=== PATIENT | female | born 1995 | race African-American/Black ===

== ENCOUNTER 2017-12-17 04:43 | Emergency (ER) | payer BC, OTHER ==
[2017-12-17] MEDS ORDERED: SODIUM CHLORIDE 1,000 ML IV STA (05:04)
--- NOTE | 2017-12-17 05:04 | PDOC ---
History of Present Illness - General Chief Complaint: Pain Stated Complaint: ABD PAIN Time Seen by Provider: 12/17/17 05:04 History Source: Patient - History of Present Illness Initial Comments: 12/17/17 05:12 22 year old female c/o suprapubic pain/ LLQ and nausea since 4am. denies urinary symptoms. unsure last BM , woke up this morning try to have a bm unable to pass BM. denies fever/ chills. Timing/Duration: momentarily Past History - Past Medical History Allergies/Adverse Reactions: Allergies Allergy/AdvReac Type Severity Reaction Status Date / Time No Known Allergies Allergy Verified 12/17/17 05:01 Home Medications: Ambulatory Orders Magnesium Citrate [Citroma -] 150 ml PO BID #1 bottle 12/17/17 Polyethylene Glycol 3350 [Miralax (For Daily Use) -] 17 gm PO DAILY #1 bottle Anemia: No Asthma: No Cancer: No Cardiac Disorders: No CVA: No COPD: No Dementia: No Diabetes: No Dialysis: No GI Disorders: No Disorders: No HTN: No Hypercholesterolemia: No Kidney Stones: No Liver Disease: No Seizures: No Thyroid Disease: No - Surgical History Abdominal Surgery: No Appendectomy: No Cardiac Surgery: No Cholecystectomy: No Lung Surgery: No Neurologic Surgery: No - Family Disease History Family Disease History: Diabetes: Grandparents (mat gm), Heart Disease: Grandparents - Immunization History Td Vaccination: Yes TDAP Vaccination: No Immunization Up to Date: Yes - Suicide/Smoking/Psychosocial Hx Smoking Status: No Smoking History: Current every day smoker Have you smoked in the past 12 months: Yes Number of Cigarettes Smoked Daily: 0 Information on smoking cessation initiated: No Hx Alcohol Use: No Drug/Substance Use Hx: No Substance Use Type: None Hx Substance Use Treatment: No *Physical Exam - Vital Signs Last Vital Signs Temp Pulse Resp BP Pulse Ox 98 F 76 18 134/85 99 12/17/17 04:53 12/17/17 04:53 12/17/17 04:53 12/17/17 04:53 12/17/17 04:53 - Physical Exam General Appearance: Yes: Appropriately Dressed, Mild Distress Gastrointestinal/Abdominal: positive: Soft, Decreased BS. negative: Tender Musculoskeletal: positive: Normal Inspection Extremity: positive: Normal Capillary Refill, Normal Inspection, Normal Range of Motion Integumentary: positive: Normal Color, Dry, Warm Neurologic: positive: Fully Oriented, Alert ED Treatment Course - LABORATORY CBC & Chemistry Diagram: 12/17/17 05:20 12/17/17 05:20 Medical Decision Making - Medical Decision Making 12/17/17 06:14 A: abdominal pain P: cbc cmp ua IVF zofran tylenol patient reports pain relief. likely abdominal cramping from constipation. will give miralax and magnesium citrate. strict return precautions reviewed patient verbalized understanding *DC/Admit/Observation/Transfer Diagnosis at time of Disposition: Abdominal pain Qualifiers: Abdominal location: unspecified location Qualified Code(s): R10.9 - Unspecified abdominal pain Constipation Qualifiers: Constipation type: unspecified constipation type Qualified Code(s): K59.00 - Constipation, unspecified - Discharge Dispostion Disposition: HOME Condition at time of disposition: Fair - Prescriptions Prescriptions: Magnesium Citrate [Citroma -] 150 ml PO BID #1 bottle Polyethylene Glycol 3350 [Miralax (For Daily Use) -] 17 gm PO DAILY #1 bottle - Referrals - Patient Instructions Printed Discharge Instructions: Constipation, Increased Dietary Fiber May Improve Constipation Conditions With Pelvic Mohamud Additional Instructions: drink plenty of fluids. take one bottle of magnesium citrate x 1 take miralax once daiily * Please call your personal physician to report your Emergency Department visit and to report your progress, if any. * If there is no improvement in symptoms in 2 days call your physician. * Return to the Emergency Department for any worsening symptoms. - Post Discharge Activity Forms/Work/School Notes: Back to Work
[2017-12-17 05:05] VITALS: TEMP 98; BMI 20.2
[2017-12-17] MEDS ORDERED: ONDANSETRON 4 MG/2 ML VIAL IVPUSH ONE (05:15)
[2017-12-17] MEDS ORDERED: ACETAMINOPHEN 1000 MG/100 ML VIAL (NON FORMULARY) IVPB ONE (05:25)
[2017-12-17] MEDS ORDERED: ONDANSETRON 4 MG/2 ML VIAL ONE (05:26)
[2017-12-17] MEDS ORDERED: ACETAMINOPHEN INJECTION 100 ML IVPB ONE (05:32)
[2017-12-17 05:34] LABS: BASO % 1.3 % (0-2.0); EOS % 2.3 % (0-4.5); HEMATOCRIT 34.1 % (32.4-45.2); HEMOGLOBIN 10.9 GM/dL (10.7-15.3); LYMPH % 45.1 % (8-40); MCH 27.4 pg (25.7-33.7); MEAN CELL VOLUME 85.5 fl (80-96); MONO % 10.2 % (3.8-10.2); NEUT % 41.1 % (42.8-82.8); PLATELET COUNT 306 K/MM3 (134-434); RBC 3.99 M/mm3 (3.60-5.2); RDW 17.7 % (11.6-15.6); WHITE BLOOD COUNT 3.5 K/mm3 (4.0-10.0)
[2017-12-17 05:35] LABS: URINE APPEARANCE CLOUDY; URINE BILIRUBIN NEGATIVE (<2.0 mg/dL); URINE COLOR YELLOW; URINE GLUCOSE (UA) NEGATIVE (NEGATIVE); URINE KETONE TRACE (NEGATIVE); URINE LEUK ESTERASE NEGATIVE (NEGATIVE); URINE NITRITE NEGATIVE (NEGATIVE); URINE PROTEIN NEGATIVE (NEGATIVE)
[2017-12-17 06:00] LABS: ALBUMIN 4.3 g/dl (3.4-5.0); ALK PHOS 82 U/L (45-117); ANION GAP 8 MMOL/L (8-16); BILIRUBIN,TOTAL 0.3 mg/dL (0.2-1); BLOOD UREA NITROGEN 10 mg/dL (7-18); CALCIUM 9.3 mg/dL (8.5-10.1); CHLORIDE 110 mmol/L (98-107); CO2 25 mmol/L (21-32); CREATININE 0.7 mg/dL (0.55-1.3); GLUCOSE,RANDOM 80 mg/dL (74-106); LIPASE 133 U/L (73-393); POTASSIUM 3.7 mmol/L (3.5-5.1); SGOT/AST 16 U/L (15-37); SGPT/ALT 15 U/L (13-61); SODIUM 143 mmol/L (136-145); TOT PROT 8.3 g/dl (6.4-8.2)
[2017-12-17 06:30] VITALS: BP 128/74; PULSE 82
== END 2017-12-17 06:31 | disposition home or self-care (01) ==
LOC: JER 04:43
PROC: 3E033NZ Introduction of Analgesics, Hypnotics, Sedatives into Peripheral Vein, Percutaneous Approach (ICD-10-PCS; principal; 2017-12-17)
PROC: 3E033GC Introduction of Other Therapeutic Substance into Peripheral Vein, Percutaneous Approach (ICD-10-PCS; 2017-12-17)
PROC: 3E0337Z Introduction of Electrolytic and Water Balance Substance into Peripheral Vein, Percutaneous Approach (ICD-10-PCS; 2017-12-17)
DX: K59.00 Constipation, unspecified (principal); R10.9 Unspecified abdominal pain
CPT/HCPCS: 36415; 80053; 81003; 83690; 84703; 85025; 99282-25; J0131; J7030

== ENCOUNTER 2018-08-07 11:17 | Emergency (ER) | payer OTHER ==
[2018-08-07 11:28] VITALS: BP 118/78; PULSE 93; TEMP 98.8; BMI 22.9
[2018-08-07] MEDS ORDERED: ACETAMINOPHEN 500 MG TABLET (FP) PO ONE (12:05)
--- NOTE | 2018-08-07 12:39 | PDOC ---
History of Present Illness - General Chief Complaint: Vaginal Bleeding Stated Complaint: VAGINAL BLEEDING Time Seen by Provider: 08/07/18 11:43 History Source: Patient Exam Limitations: No Limitations - History of Present Illness Travel History: No Initial Comments: 08/07/18 12:13 23-year-old female currently 13 weeks presents the ED with complaints of lower abdominal cramping associated with spotting this morning after urination. Patient currently denies vaginal discharge or bleeding. Patient denies back pain, urinary complaints, fever or nausea. Patient is followed by Dr. Rosales and had an ultrasound done last week which showed a normal IUP. Timing/Duration: reports: changing over time Quality: reports: mild, cramping Abdominal Pain Onset Location: reports: suprapubic Pain Radiation: reports: no radiation Activities at Onset: reports: none Aggravating Factors: improves with: None Alleviating Factors: improves with: None Past History - Travel Traveled outside of the country in the last 30 days: No Close contact w/someone who was outside of country & ill: No - Past Medical History Allergies/Adverse Reactions: Allergies Allergy/AdvReac Type Severity Reaction Status Date / Time No Known Allergies Allergy Verified 12/17/17 05:01 Home Medications: Ambulatory Orders NK [No Known Home Medication] 08/07/18 Anemia: No Asthma: No Cancer: No Cardiac Disorders: No CVA: No COPD: No Dementia: No Diabetes: No Dialysis: No GI Disorders: No Disorders: No HTN: No Hypercholesterolemia: No Kidney Stones: No Liver Disease: No Seizures: No Thyroid Disease: No - Surgical History Abdominal Surgery: No Appendectomy: No Cardiac Surgery: No Cholecystectomy: No Lung Surgery: No Neurologic Surgery: No - Family Disease History Family Disease History: Diabetes: Grandparents (mat gm), Heart Disease: Grandparents - Immunization History Td Vaccination: Yes TDAP Vaccination: No Immunization Up to Date: Yes - Suicide/Smoking/Psychosocial Hx Smoking Status: No Smoking History: Never smoked Have you smoked in the past 12 months: Yes Number of Cigarettes Smoked Daily: 0 Information on smoking cessation initiated: No Hx Alcohol Use: No Drug/Substance Use Hx: No Substance Use Type: None Hx Substance Use Treatment: No Patient Lives Alone: No Lives with/in: parents Review of Systems - Review of Systems Able to Perform ROS?: Yes Constitutional: No: Symptoms Reported Respiratory: No: Symptoms reported Cardiac (ROS): No: Symptoms Reported ABD/GI: Yes: Abdominal cramping : Yes: Discharge Musculoskeletal: No: Symptoms Reported Integumentary: No: Symptoms Reported Neurological: No: Symptoms reported *Physical Exam - Vital Signs Last Vital Signs Temp Pulse Resp BP Pulse Ox 98.8 F 93 H 16 118/78 100 08/07/18 11:23 08/07/18 11:23 08/07/18 11:23 08/07/18 11:23 08/07/18 11:23 - Physical Exam General Appearance: Yes: Nourished, Appropriately Dressed. No: Apparent Distress HEENT: positive: EOMI. negative: Pale Conjunctivae Neck: positive: Supple Respiratory/Chest: positive: Lungs Clear, Normal Breath Sounds. negative: Respiratory Distress, Accessory Muscle Use Cardiovascular: positive: Regular Rhythm, Regular Rate. negative: Murmur Female Pelvic Exam: positive: normal external exam, cervical os closed. negative: normal adnexa, CMT, discharge, vaginal bleeding Gastrointestinal/Abdominal: positive: Soft. negative: Tenderness Musculoskeletal: negative: CVA Tenderness Extremity: positive: Normal Inspection Integumentary: positive: Normal Color, Warm, Moist Neurologic: positive: Motor Strength 5/5 (ambulatory) ED Treatment Course - LABORATORY CBC & Chemistry Diagram: 08/07/18 12:45 08/07/18 12:45 - RADIOLOGY Radiology Studies Ordered: Category Date Time Status <14WKS US [US] Stat Ultrasound 08/07/18 12:06 Ordered Medical Decision Making - Medical Decision Making 08/07/18 12:40 CC: vag spotting thia am now w/ cramping. 13 wks Exam: no abd tenderness. no vag bleeding/DC Plan: labs, urine, tylenol, and U/s 08/07/18 13:36 Laboratory Tests 08/07/18 08/07/18 08/07/18 12:25 12:45 12:45 WBC 5.0 Hgb 10.6 L Hct 33.1 MPV 7.2 L Absolute Neuts (auto) 3.5 Sodium 135 L Carbon Dioxide 20 L Anion Gap 8 BUN 11 Creatinine 0.5 L Random Glucose 78 Calcium 9.3 Total Bilirubin < 0.1 L AST 15 ALT 13 Alkaline Phosphatase 53 Total Protein 7.4 Albumin 3.4 Ur Leukocyte Esterase 2+ H Urine WBC (Auto) 11 Ultrasound shows a single live and she her with estimated sonographic gestational 13 weeks and 3 days. heart rate at 155. Patient will be discharged home with Keflex *DC/Admit/Observation/Transfer Diagnosis at time of Disposition: UTI (urinary tract infection), Abdominal pain during intrauterine - Discharge Dispostion Disposition: HOME Condition at time of disposition: Improved - Referrals - Patient Instructions Printed Discharge Instructions: DI for Urinary Tract Infection (UTI) Additional Instructions: Please take antibiotics as prescribed. Drink at least 2 L of water on a daily basis. Please clean from front to back and wear cotton underwear. - Post Discharge Activity
[2018-08-07 12:51] LABS: EPI CELLS 33.2 /HPF (0-5/HPF); PH,URINE 5.5 (5.0-8.0); URINE APPEARANCE CLOUDY; URINE BACTERIA 558.1 /hpf (NEGATIVE); URINE BILIRUBIN NEGATIVE (NEGATIVE); URINE CASTS 15 /lpf (0-8); URINE COLOR YELLOW; URINE GLUCOSE (UA) NEGATIVE (NEGATIVE); URINE KETONE NEGATIVE (NEGATIVE); URINE LEUK ESTERASE 2+ (NEGATIVE); URINE NITRITE NEGATIVE (NEGATIVE); URINE PROTEIN NEGATIVE (NEGATIVE); URINE RBC 1 /hpf (0-4); URINE UROBILINOGEN 0.2 mg/dL (0.2-1.0); URINE WBC 11 /hpf (0-5)
[2018-08-07] MEDS ORDERED: ACETAMINOPHEN 325 MG TABLET (FP) ONE (12:56)
[2018-08-07 12:59] LABS: BASO % 0.4 % (0-2.0); EOS % 0.9 % (0-4.5); HEMATOCRIT 33.1 % (32.4-45.2); HEMOGLOBIN 10.6 GM/dL (10.7-15.3); MCH 27.8 pg (25.7-33.7); MEAN CELL VOLUME 87.1 fl (80-96); MEAN PLT VOLUME 7.2 fl (7.5-11.1); MONO % 8.4 % (3.8-10.2); NEUT % 70.3 % (42.8-82.8); PLATELET COUNT 293 K/MM3 (134-434); RDW 16.5 % (11.6-15.6)
[2018-08-07 13:27] LABS: ALBUMIN 3.4 g/dl (3.4-5.0); ALK PHOS 53 U/L (45-117); ANION GAP 8 MMOL/L (8-16); BILIRUBIN,TOTAL < 0.1 mg/dL (0.2-1); BLOOD UREA NITROGEN 11 mg/dL (7-18); CALCIUM 9.3 mg/dL (8.5-10.1); CHLORIDE 107 mmol/L (98-107); CO2 20 mmol/L (21-32); CREATININE 0.5 mg/dL (0.55-1.3); GLUCOSE,RANDOM 78 mg/dL (74-106); POTASSIUM 4.1 mmol/L (3.5-5.1); SGOT/AST 15 U/L (15-37); SGPT/ALT 13 U/L (13-61); SODIUM 135 mmol/L (136-145); TOT PROT 7.4 g/dl (6.4-8.2)
== END 2018-08-07 13:45 | disposition home or self-care (01) ==
LOC: JER 11:17
DX: O23.31 Infections of other parts of urinary tract in pregnancy, first trimester (principal); Z3A.13 13 weeks gestation of pregnancy
CPT/HCPCS: 36415; 76801-TC; 80053; 81003; 85025; 86850; 86900; 86901; 87086; 99282-25

== ENCOUNTER 2019-02-07 19:50 | Inpatient (IN) | payer OTHER ==
[2019-02-07] MEDS ORDERED: DEXTROSE 5%-LACTATED RINGERS 500 ML IV ONE ×2 (21:15)
[2019-02-07] MEDS ORDERED: AMPICILLIN - 2 GM in SODIUM CHLORIDE 100 ML IVPB ONE (22:34)
[2019-02-07] MEDS ORDERED: BUTORPHANOL TARTRATE 1 MG/ML VIAL IVPUSH ONE (22:36)
[2019-02-07] MEDS ORDERED: PROMETHAZINE HCL 25 MG/1 ML VIAL IVPUSH ONE (22:36)
--- NOTE | 2019-02-07 22:45 | HP ---
Past Medical History - Primary Care Physician PCP:: Erickson Rosales - Admission Chief Complaint: 39 weeks , labor History of Present Illness: 23 yo f 39 weeks, in labor ,cx 2 cm 70 vx -3 ,mi, fhr cat 1, , regular contraction q 2 min, no rom, no bleeding, no fever , GBS positive History Source: Patient Limitations to Obtaining History: No Limitations - Past Medical History ...: 1 ...Para: 0 ...Term: 0 ...: 0 ...Spon : 0 ...Induced : 0 ...LMP: 05/10/18 ... Weeks Gestation by Dates: 39.0 ...EDC by Dates: 02/14/19 ...EDC by Sono: 02/11/19 - Past Surgical History Hx Myomectomy: No Hx Transabdominal Cerclage: No - Smoking History Smoking history: Never smoked Have you smoked in the past 12 months: Yes Aproximately how many cigarettes per day: 0 - Alcohol/Substance Use Hx Alcohol Use: No - Social History Usual Living Arrangement: Yes: With Significant Other History of Recent Travel: No Home Medications - Allergies Allergies/Adverse Reactions: Allergies Allergy/AdvReac Type Severity Reaction Status Date / Time No Known Allergies Allergy Verified 02/07/19 21:01 - Home Medications Home Medications: Ambulatory Orders Ferrous Sulfate [Feosol] 325 mg PO DAILY 02/07/19 Vitamins (Sjr) - 1 tab PO DAILY 02/07/19 Review of Systems - Review of Systems Constitutional: reports: No Symptoms Eyes: reports: No Symptoms HENT: reports: No Symptoms Neck: reports: No Symptoms Cardiovascular: reports: No Symptoms Respiratory: reports: No Symptoms Gastrointestinal: reports: No Symptoms Genitourinary: reports: No Symptoms Breasts: reports: No Symptoms Reported Musculoskeletal: reports: No Symptoms Integumentary: reports: No Symptoms Neurological: reports: No Symptoms Endocrine: reports: No Symptoms Hematology/Lymphatic: reports: No Symptoms Psychiatric: reports: No Symptoms Physical Exam - Maternity Vital Signs: Vital Signs Temperature 98.3 F 02/07/19 20:13 Pulse Rate 97 H 02/07/19 20:13 Respiratory Rate 20 02/07/19 20:13 Blood Pressure 115/80 02/07/19 20:13 O2 Sat by Pulse Oximetry (%) Constitutional: Yes: Well Nourished, No Distress, Calm Eyes: Yes: WNL, Conjunctiva Clear, EOM Intact HENT: Yes: WNL, Atraumatic, Normocephalic Neck: Yes: WNL, Supple, Trachea Midline Cardiovascular: Yes: WNL, Regular Rate and Rhythm Breast(s): Yes: WNL - Abdominal Exam/OB Fundal Height: 40 Number of Fetuses: Single Presentation: Vertex Contractions: Yes Regularity: Regular Intensity: Mod/Strong Monitor Mode: External Heart Rate Location: [facility] Category: I Accelerations: Non-Uniform Decelerations: None - Vaginal Exam/OB Vaginal Bleediing: No Speculum Exam: No Dilatation (cm): 2 cm Effacement (%): 70 Amniotic Membrane Status: Intact Presentation: Vertex/Position Station: -3 - Physical Exam Musculoskeletal: Yes: WNL Extremities: Yes: WNL Edema: LLE: Trace, RLE: Trace Deep Tendon Reflex Grade: Normal +2 Psychiatric: Yes: WNL Problem List - Problems (1) with 39 completed weeks gestation Code(s): Z3A.39 - 39 WEEKS GESTATION OF (2) Labor established Code(s): ADK2578 - Assessment/Plan admit FHM pain management GBS positve , will tx
[2019-02-07 22:48] LABS: BASO % 0.2 % (0-2.0); EOS % 0.3 % (0-4.5); HEMATOCRIT 30.6 % (32.4-45.2); HEMOGLOBIN 9.9 GM/dL (10.7-15.3); LYMPH % 16.1 % (8-40); MCH 28.4 pg (25.7-33.7); MCHC 32.4 g/dl (32.0-36.0); MEAN CELL VOLUME 87.8 fl (80-96); MEAN PLT VOLUME 8.9 fl (7.5-11.1); NEUT % 73.4 % (42.8-82.8); PLATELET COUNT 214 K/MM3 (134-434); RBC 3.48 M/mm3 (3.60-5.2); RDW 15.1 % (11.6-15.6); WHITE BLOOD COUNT 7.1 K/mm3 (4.0-10.0)
[2019-02-07] MEDS ORDERED: AMPICILLIN SODIUM 2 GM VIAL ONE (22:50)
[2019-02-07 22:58] LABS: INR 0.97 (0.83-1.09); PROTHROMBIN TIME (PATIENT) 11.4 SEC (9.7-13.0)
[2019-02-07 23:01] LABS: ACTIVATED PTT 24.1 SECONDS (25.2-36.5)
[2019-02-07 23:10] LABS: BLOOD UREA NITROGEN 9.4 mg/dL (7-18); CALCIUM 8.8 mg/dL (8.5-10.1); CREATININE 0.6 mg/dL (0.55-1.3)
[2019-02-07] MEDS ORDERED: TUBERCULIN PPD 5 TU/0.1ML SYRINGE (IN PATIENT USE ONLY) ID ONE (23:15)
[2019-02-07] MEDS ORDERED: DEXTROSE 5%-LACTATED RINGERS 1,000 ML IV SCH (23:15)
[2019-02-07] MEDS ORDERED: BUTORPHANOL TARTRATE 1 MG/ML VIAL ONE ×2 (23:21)
[2019-02-07] MEDS ORDERED: PROMETHAZINE HCL 25 MG/1 ML VIAL ONE (23:21)
[2019-02-08 00:31] VITALS: BMI 29.1
[2019-02-08] MEDS ORDERED: FENTANYL/BUPIVACAINE/NS/PF - PCEA - 50 ML DISP.SYRIN EP ONE ×5 (02:19→15:06)
[2019-02-08] MEDS ORDERED: AMPICILLIN SODIUM 1 GM VIAL ONE ×6 (02:20→18:43)
[2019-02-08] MEDS ORDERED: ELECTROLYTE-148 SOLN 1,000 ML IV SCH (02:30)
[2019-02-08] MEDS: AMPICILLIN - 1 GM in SODIUM CHLORIDE 100 ML IVPB SCH ×5 (02:30→18:45)
[2019-02-08] MEDS ORDERED: NALOXONE HCL 0.4 MG/ML VIAL IVPUSH PRN (03:31)
[2019-02-08] MEDS ORDERED: FENTANYL/BUPIVACAINE/NS/PF - PCEA - 50 ML DISP.SYRIN EP SCH (03:45)
[2019-02-08] MEDS: FENTANYL/BUPIVACAINE/NS/PF - PCEA - 50 ML DISP.SYRIN EP SCH (07:48)
--- NOTE | 2019-02-08 08:32 | PN ---
Progress Note (short form) - Note Progress Note: cx 8 cm 100 vx -2 arom, mec .A.F . FHR cat 1, regular contraction. Problem List - Problems (1) with 39 completed weeks gestation Code(s): Z3A.39 - 39 WEEKS GESTATION OF (2) Labor established Code(s): [id number] -
--- NOTE | 2019-02-08 10:46 | PN ---
Ante-Partal Exam - Subjective Subjective: No complaints. Epidural is in place. Vital Signs: Vital Signs Temperature 98.4 F 02/08/19 10:00 Pulse Rate 90 02/08/19 10:30 Respiratory Rate 17 02/08/19 10:30 Blood Pressure 128/87 02/08/19 10:30 O2 Sat by Pulse Oximetry (%) 100 02/08/19 10:30 Bleeding: No Headache: No Visual changes: No Right upper quadrant pain: No Pain (scale 1-10): 0 - Contractions Contractions: Yes Regularity: Irregular Intensity: Moderate Monitor Mode: External - Exam during Labor Heart Rate: 140 Variability: Moderate Heart Rate Location: Midline Category: I Monitor Accelerations: Present Monitor Decelerations: None Exam: Vaginal Dilatation (cm): 9 Effacement (%): 90 Amniotic Membrane Status: Leaking Amniotic Fluid: Meconium Stained Meconium Staining: Light Presentation: Vertex Station: 0 Remarks: Adequate pelvimetry - Intrapartum Hemorrhage Risk Medium Risk Factors: None High Risk Factors: None Risk Score: 0 Risk Level: Low Risk - Assessment/Plan Assessment/Plan: 23yo P0 with at EGA 39wks in spont labor. Labor is in active phase. Fetus with Category I tracing Continue monitoring.
[2019-02-08] MEDS ORDERED: OXYTOCIN 30 UNITS in 0.9% NS 30 UNIT/500 ML INFUS.BAG IVPB ONE (11:58)
--- NOTE | 2019-02-08 12:12 | PN ---
Ante-Partal Exam - Subjective Subjective: Pt w/o complaints Vital Signs: Vital Signs Temperature 98.8 F 02/08/19 11:00 Pulse Rate 91 H 02/08/19 11:15 Respiratory Rate 17 02/08/19 11:15 Blood Pressure 125/87 02/08/19 11:15 O2 Sat by Pulse Oximetry (%) 100 02/08/19 11:15 Bleeding: No Headache: No Visual changes: No Right upper quadrant pain: No Pain (scale 1-10): 0 - Contractions Contractions: Yes Regularity: Irregular (q2-6 min) Intensity: Mild/Mod Monitor Mode: External - Exam during Labor Heart Rate: 145 Variability: Moderate Heart Rate Location: Midline Category: I Monitor Accelerations: Present Monitor Decelerations: Variable (rare varaible decels to 120) Exam: Vaginal Dilatation (cm): 9 Effacement (%): 90 Amniotic Membrane Status: Leaking Amniotic Fluid: Meconium Stained Meconium Staining: Light Presentation: Vertex Station: 0 Remarks: No cervical change, gynecoid pelvimetry. No caput, no cervical edema. - Intrapartum Hemorrhage Risk Medium Risk Factors: None High Risk Factors: None Risk Score: 0 Risk Level: Low Risk - Assessment/Plan Assessment/Plan: 23yo P0 with arrest of dilation and inadequate contractions. Fetus with Category I tracing and requires no intervention. Labor with arrest of dilation. Plan to augment contractions with pitocin. Risks and benefits d/w pt.
[2019-02-08] MEDS ORDERED: OXYTOCIN 30 UNITS in 0.9% NS 30 UNIT/500 ML INFUS.BAG IVPB SCH (12:30)
[2019-02-08] MEDS ORDERED: OXYTOCIN 20 UNITS in 0.9% NS 20 UNIT/1,000 ML INFUS.BAG IV ONE ×2 (16:05→20:22)
[2019-02-08] MEDS ORDERED: LIDOCAINE HCL 1% PRESERVATIVE FREE - 30ML VIAL ONE (16:05)
[2019-02-08] MEDS ORDERED: LIDO 2%/EPI 1:200000 PRESRVFRE (20 ML SDVIAL) ONE (19:07)
--- NOTE | 2019-02-08 19:14 | PN ---
Ante-Partal Exam - Subjective Subjective: Pt has been fully dilated since 3;45pm and pushing since 4pm. Fetus with arrest of descent at +1 station. Vital Signs: Vital Signs Temperature 100.0 F H 02/08/19 15:53 Pulse Rate 115 H 02/08/19 16:15 Respiratory Rate 18 02/08/19 16:15 Blood Pressure 146/102 H 02/08/19 16:15 O2 Sat by Pulse Oximetry (%) 100 02/08/19 16:15 Bleeding: No Headache: No Visual changes: No Right upper quadrant pain: No Pain (scale 1-10): 10 (epidural was turned off) - Contractions Contractions: Yes (q3min) Regularity: Regular Intensity: Mod/Strong Monitor Mode: External - Exam during Labor Heart Rate: 145 Variability: Moderate Heart Rate Location: Midline Category: II Monitor Accelerations: Present Monitor Decelerations: Variable (rare, down to 120 bpm) Exam: Vaginal Dilatation (cm): 10 Effacement (%): 100 Amniotic Membrane Status: Leaking Meconium Staining: Moderate Presentation: Vertex Station: +1 Remarks: Severe vulvar edema, (+) caput and molding, no descent with pushing effort. - Intrapartum Hemorrhage Risk Medium Risk Factors: Prolonged Second Stage High Risk Factors: None Risk Score: 1 Risk Level: Medium Risk - Assessment/Plan Assessment/Plan: 23yo P0 with arrest of descent. Fetus with Category II tracing. Pt was pushing x 3 hrs w/o changes. plan to proceed with C/S. Risks and benefits were discussed.
[2019-02-08] MEDS ORDERED: SUCCINYLCHOLINE CHLORIDE 200 MG/10 ML SYRINGE ONE (19:39)
[2019-02-08] MEDS ORDERED: ePHEDrine SULFATE 50 MG/1 ML AMPULE ONE (19:39)
[2019-02-08] MEDS ORDERED: PROPOFOL 20 ML ONE (19:39)
[2019-02-08] MEDS ORDERED: PHENYLEPHRINE HCL 10 MG/1 ML SINGLE DOSE VIAL ONE (19:39)
--- NOTE | 2019-02-08 20:14 | PN ---
Progress Note (short form) - Note Progress Note: Called to attend the delivery for this 23yrs old mother with pnl- NL, gbs- Pos Adequate IAP/ Amp X 6 doses rom > 11HRS- thick Mec. C/S done for FTP C/S done under GA- slightly limp at meaghan- given spome IPPV- recovered- No Mec in the oral cavity 6/ at 1/5 minutes, Cord 3V present clinically stable- [place] well perfused Infant's PE exam nl for age. RNBC watch for resp distress Encourage Bf/ Bonding
[2019-02-08] MEDS ORDERED: IBUPROFEN 800 MG/8 ML IJ IVPB PRN (20:44)
[2019-02-08] MEDS ORDERED: BENZOCAINE 20% 57 GM BOTTLE TP PRN (20:44)
[2019-02-08] MEDS ORDERED: METHYLERGONOVINE MALEATE 0.2 MG/1 ML AMP IM PRN (20:44)
[2019-02-08] MEDS ORDERED: WITCH HAZEL 50% (TUCKS) 40 PAD/JAR PAD TP PRN (20:44)
[2019-02-08] MEDS ORDERED: BENZOCAINE 28 GM HEMORRHOIDAL OINTMENT TP PRN (20:44)
[2019-02-08] MEDS: OXYTOCIN 20 UNITS in 0.9% NS 20 UNIT/1,000 ML INFUS.BAG IV SCH (20:45)
[2019-02-08] MEDS ORDERED: ONDANSETRON 4 MG/2 ML VIAL IVPUSH PRN (20:55)
[2019-02-08] MEDS ORDERED: ACETAMINOPHEN 1000 MG/100 ML VIAL (NON FORMULARY) IVPB ONE (20:55)
--- NOTE | 2019-02-08 20:57 | OP ---
Operative Note - Note: Operative Date: 02/08/19 Pre-Operative Diagnosis: Arrest of descent (deep transverse arrest),. High Spinal anesthesia intra-operatively Operation: Primary LT C/S Findings: 1 Light mec in aniotic fluid 2. Fetus with deep transverse arrest 3. Normal uterus, tubes, ovaries 4. Live baby girl in vts presentation, 6-8 5. High spinal was converted to general intubation anesthesia Post-Operative Diagnosis: Same as Pre-op Surgeon: Conrad Hahn Leather Belt Loop Cutter: Radha Dixon Anesthesiologist/PAYROLL MASTER: Ed Quinn Anesthesia: Spinal Specimens Removed: Placenta Estimated Blood Loss (mls): 700 Drains & Tubes with Location: Lau cath Drains, Volume Out (mls): 350 (blood tinged) Blood Volume Replaced (mls): 0 Fluid Volume Replaced (mls): 1,200 Operative Report Dictated: Yes
[2019-02-08] MEDS ORDERED: ACETAMINOPHEN INJECTION 100 ML IVPB ONE (21:03)
[2019-02-09] MEDS: AMPICILLIN - 1 GM in SODIUM CHLORIDE 100 ML IVPB SCH ×2 (06:53→15:54)
[2019-02-09 08:21] LABS: BASO % 0.1 % (0-2.0); HEMATOCRIT 21.8 % (32.4-45.2); LYMPH % 6.3 % (8-40); MCH 28.2 pg (25.7-33.7); MCHC 32.1 g/dl (32.0-36.0); MEAN CELL VOLUME 88.1 fl (80-96); MEAN PLT VOLUME 8.7 fl (7.5-11.1); MONO % 6.3 % (3.8-10.2); NEUT % 87.3 % (42.8-82.8); PLATELET COUNT 184 K/MM3 (134-434); RBC 2.47 M/mm3 (3.60-5.2); RDW 15.5 % (11.6-15.6); WHITE BLOOD COUNT 15.2 K/mm3 (4.0-10.0)
--- NOTE | 2019-02-09 09:18 | PN ---
Post Progress Note - Subjective Subjective: Patient without acute complaints. Reports tolerating oral intake without nausea or vomiting. Ambulating without dizziness. Denies fevers or chills. Pain well controlled with oral pain medication. Post Day: 1 Type of Delivery: Primary C/S Vital Signs: Vital Signs Temperature 98.9 F 02/09/19 06:00 Pulse Rate 94 H 02/09/19 06:00 Respiratory Rate 18 02/09/19 06:00 Blood Pressure 95/58 L 02/09/19 06:00 O2 Sat by Pulse Oximetry (%) 96 02/08/19 21:30 Breast Exam: Yes: Soft Uterus: Yes: Fundus Firm Incision: Yes: Dressing dry and intact Abdomen/GI: Yes: Abdomen soft Lochia: Yes: Rubra Lochia, amount: Small Extremities: Yes: Calves non-tender Perineum: Yes: Intact Activity: Ambulating - Labs Labs: CBC WBC 15.2 K/mm3 (4.0-10.0) H 02/09/19 07:43 RBC 2.47 M/mm3 (3.60-5.2) L 02/09/19 07:43 Hgb 7.0 GM/dL (10.7-15.3) L 02/09/19 07:43 Hct 21.8 % (32.4-45.2) L D 02/09/19 07:43 MCV 88.1 fl (80-96) 02/09/19 07:43 MCH 28.2 pg (25.7-33.7) 02/09/19 07:43 MCHC 32.1 g/dl (32.0-36.0) 02/09/19 07:43 RDW 15.5 % (11.6-15.6) 02/09/19 07:43 Plt Count 184 K/MM3 (134-434) 02/09/19 07:43 MPV 8.7 fl (7.5-11.1) 02/09/19 07:43 Absolute Neuts (auto) 13.3 K/mm3 (1.5-8.0) H 02/09/19 07:43 Neutrophils % 87.3 % (42.8-82.8) H 02/09/19 07:43 Lymphocytes % 6.3 % (8-40) L D 02/09/19 07:43 Monocytes % 6.3 % (3.8-10.2) 02/09/19 07:43 Eosinophils % 0.0 % (0-4.5) D 02/09/19 07:43 Basophils % 0.1 % (0-2.0) 02/09/19 07:43 Nucleated RBC % 0 % (0-0) 02/09/19 07:43 Assessment/Plan 23yo P 1 now s/p 1' LST c/section VSS, Afebrile H/H - low, but patient is assymptomatic will repeat CBC in am SHe is ambulating without difficulty Monitor Urine output Female Rh pos - no need for RhoGam continue routine PP care
[2019-02-09] MEDS ORDERED: MAGNESIUM SULFATE 20GM/500ML - 20 GM/500 ML INFUS.BAG ONE (09:48)
[2019-02-09] MEDS: ENOXAPARIN NA (PORCINE) 40 MG/0.4 ML DISP.SYRIN SQ SCH (10:23)
[2019-02-09] MEDS: PRENATAL VITAMINS W/ FOLIC ACID TABLET (FP) PO SCH (10:25)
[2019-02-09] MEDS: MAGNESIUM SULFATE 16 OZ CRYSTALS TP PRN ×3 (10:50→18:31)
--- NOTE | 2019-02-09 14:13 | PN ---
Progress Note (short form) - Note Progress Note: Pt seen. POD#1 after under GETA (2/ "high spinal") Mother and baby doing well. no complaints.
[2019-02-09] MEDS: IBUPROFEN 600 MG TABLET (FP) PO PRN (14:56)
[2019-02-09] MEDS: SIMETHICONE 80 MG TAB.CHEW (FP) PO PRN (14:57)
[2019-02-09] MEDS: oxyCODONE HCL 5 MG TABLET PO PRN (18:28)
[2019-02-09] MEDS: ACETAMINOPHEN 325 MG TABLET (FP) PO PRN (18:30)
[2019-02-09] MEDS ORDERED: BISACODYL 10 MG SUPP.RECT RC PRN (20:45)
[2019-02-10] MEDS: oxyCODONE HCL 5 MG TABLET PO PRN ×3 (02:17→16:20)
[2019-02-10] MEDS: SIMETHICONE 80 MG TAB.CHEW (FP) PO PRN ×3 (02:17→23:51)
[2019-02-10] MEDS: IBUPROFEN 600 MG TABLET (FP) PO PRN ×4 (02:17→23:52)
--- NOTE | 2019-02-10 07:48 | PN ---
Progress Note (short form) - Note Progress Note: pod 2 s/p primary c/s , has low abdominal pain , passing gas, no dizziness , no excess vaginal bleeding CBC, BMP 02/09/19 07:43 02/07/19 22:25 abdomen soft, no distension, no cva , no rebound incision dry, clean no calf tenderness no excess vaginal bleeding impression anemia , asymptomatic , repeat cbc and revaluate ambulate pain management Problem List - Problems (1) with 39 completed weeks gestation Code(s): Z3A.39 - 39 WEEKS GESTATION OF (2) Labor established Code(s): CUR0412 -
[2019-02-10 08:46] LABS: BASO % 0.2 % (0-2.0); EOS % 0.8 % (0-4.5); HEMATOCRIT 20.6 % (32.4-45.2); LYMPH % 13.1 % (8-40); MCH 28.4 pg (25.7-33.7); MEAN CELL VOLUME 88.7 fl (80-96); MEAN PLT VOLUME 8.5 fl (7.5-11.1); MONO % 7.6 % (3.8-10.2); NEUT % 78.3 % (42.8-82.8); PLATELET COUNT 178 K/MM3 (134-434); RBC 2.33 M/mm3 (3.60-5.2); RDW 15.7 % (11.6-15.6); WHITE BLOOD COUNT 11.1 K/mm3 (4.0-10.0)
[2019-02-10 08:52] LABS: HEMOGLOBIN 6.6 GM/dL (10.7-15.3)
[2019-02-10] MEDS: ENOXAPARIN NA (PORCINE) 40 MG/0.4 ML DISP.SYRIN SQ SCH (10:35)
[2019-02-10] MEDS: PRENATAL VITAMINS W/ FOLIC ACID TABLET (FP) PO SCH (10:35)
[2019-02-10] MEDS: ACETAMINOPHEN 325 MG TABLET (FP) PO SCH ×2 (12:58→17:28)
[2019-02-10] MEDS: OXYTOCIN 20 UNITS in 0.9% NS 20 UNIT/1,000 ML INFUS.BAG IV SCH (23:36)
[2019-02-10] MEDS: ACETAMINOPHEN 325 MG TABLET (FP) PO PRN (23:51)
[2019-02-11] MEDS: oxyCODONE HCL 5 MG TABLET PO PRN ×3 (01:00→18:46)
[2019-02-11] MEDS: FENTANYL/BUPIVACAINE/NS/PF - PCEA - 50 ML DISP.SYRIN EP SCH ×2 (01:54→01:56)
[2019-02-11] MEDS: AMPICILLIN - 1 GM in SODIUM CHLORIDE 100 ML IVPB SCH (01:55)
--- NOTE | 2019-02-11 07:45 | PN ---
Post Progress Note - Subjective Subjective: Patient without acute complaints. Reports tolerating oral intake without nausea or vomiting. Ambulating without dizziness. Denies fevers or chills. Pain well controlled with oral pain medication. without difficulty. Passing flatus. Post Day: 3 Type of Delivery: Primary C/S Vital Signs: Vital Signs Temperature 98.6 F 02/10/19 22:05 Pulse Rate 80 02/10/19 22:05 Respiratory Rate 18 02/10/19 22:05 Blood Pressure 110/76 02/10/19 22:05 O2 Sat by Pulse Oximetry (%) 98 02/10/19 22:00 Breast Exam: Yes: Soft Uterus: Yes: Fundus Firm Incision: Yes: Sutures intact Abdomen/GI: Yes: Abdomen soft Lochia: Yes: Rubra Lochia, amount: Small Extremities: Yes: Calves non-tender Perineum: Yes: Intact Activity: Ambulating - Labs Labs: CBC WBC 11.1 K/mm3 (4.0-10.0) H 02/10/19 08:26 RBC 2.33 M/mm3 (3.60-5.2) L 02/10/19 08:26 Hgb 6.6 GM/dL (10.7-15.3) L* 02/10/19 08:26 Hct 20.6 % (32.4-45.2) L 02/10/19 08:26 MCV 88.7 fl (80-96) 02/10/19 08:26 MCH 28.4 pg (25.7-33.7) 02/10/19 08:26 MCHC 32.0 g/dl (32.0-36.0) 02/10/19 08:26 RDW 15.7 % (11.6-15.6) H 02/10/19 08:26 Plt Count 178 K/MM3 (134-434) 02/10/19 08:26 MPV 8.5 fl (7.5-11.1) 02/10/19 08:26 Absolute Neuts (auto) 8.7 K/mm3 (1.5-8.0) H 02/10/19 08:26 Neutrophils % 78.3 % (42.8-82.8) 02/10/19 08:26 Lymphocytes % 13.1 % (8-40) D 02/10/19 08:26 Monocytes % 7.6 % (3.8-10.2) 02/10/19 08:26 Eosinophils % 0.8 % (0-4.5) D 02/10/19 08:26 Basophils % 0.2 % (0-2.0) 02/10/19 08:26 Nucleated RBC % 0 % (0-0) 02/10/19 08:26 Assessment/Plan 23yo P 1 now s/p 1' LST c/section VSS, Afebrile H/H - Pending post 2UPRBS Assymptomatic SHe is ambulating without difficult Female infant Rh pos - no need for RhoGam continue routine PP care Plan D/C in am 02/12/19
[2019-02-11] MEDS: ENOXAPARIN NA (PORCINE) 40 MG/0.4 ML DISP.SYRIN SQ SCH (09:46)
[2019-02-11] MEDS: PRENATAL VITAMINS W/ FOLIC ACID TABLET (FP) PO SCH (09:46)
[2019-02-11 10:50] LABS: BASO % 0.2 % (0-2.0); HEMATOCRIT 27.1 % (32.4-45.2); HEMOGLOBIN 9.1 GM/dL (10.7-15.3); LYMPH % 16.4 % (8-40); MCH 29.5 pg (25.7-33.7); MCHC 33.5 g/dl (32.0-36.0); MEAN CELL VOLUME 87.9 fl (80-96); MEAN PLT VOLUME 8.4 fl (7.5-11.1); MONO % 6.6 % (3.8-10.2); NEUT % 75.8 % (42.8-82.8); PLATELET COUNT 206 K/MM3 (134-434); RBC 3.09 M/mm3 (3.60-5.2); RDW 15.1 % (11.6-15.6); WHITE BLOOD COUNT 8.6 K/mm3 (4.0-10.0)
[2019-02-11] MEDS: ACETAMINOPHEN 325 MG TABLET (FP) PO PRN ×2 (11:50→18:48)
[2019-02-11] MEDS: SIMETHICONE 80 MG TAB.CHEW (FP) PO PRN ×2 (11:51→18:46)
--- NOTE | 2019-02-11 16:34 | PATH ---
Surgical Pathology Report Patient Name: LEIDY HAHN Med. Rec. #: [id number] /Age/Gender: 1995 (Age: 23) / F Account: [id number] Location: [facility] OBS/EVP Taken: 02/08/2019 Received: 02/09/2019 Reported: 02/11/2019 Physicians: Amanda Montelongo M.D. Specimen(s) Received PLACENTA Clinical History , 39.4 weeks gestation, failure to descend Final Diagnosis PLACENTA, SECTION: 510 G THIRD TRIMESTER PLACENTA WITH TRIVASCULAR UMBILICAL CORD AND UNREMARKABLE PLACENTAL MEMBRANES. Electronically Signed Adore Costa M.D. Gross Description The specimen is received fresh labeled placenta and is a 510 gram, 17.0 x 14.5 x 2.7 cm. placenta with attached membranes and an attached portion of umbilical cord. There is an additional portion of umbilical cord separately received within the same container. The attached membranes are maddox, translucent with focal opacities and insert marginally. The attached portion of umbilical cord measures 4 cm. in length and averages 1.4 cm. in diameter. There is an additional 13 cm in length portion of umbilical cord separately received within the same container. The cord inserts centrally. No true knots or strictures are identified. Cut surface of the umbilical cord reveals 3 vessels. The surface is vela blue with moderate fibrin deposition and appropriate caliber vessels. The maternal surface is red-brown with focal defects. Sectioning reveals red-brown, spongy parenchyma. No lesions are identified. Executive Secretary sections are submitted in three cassettes as follows: 1- membrane rolls and umbilical cord; 2-3- full thickness sections of placenta. 02/10/2019 [facility]02/10/2019
[2019-02-12] MEDS: SIMETHICONE 80 MG TAB.CHEW (FP) PO PRN (05:46)
[2019-02-12] MEDS: ACETAMINOPHEN 325 MG TABLET (FP) PO PRN (05:46)
[2019-02-12] MEDS: IBUPROFEN 600 MG TABLET (FP) PO PRN (05:46)
--- NOTE | 2019-02-12 07:19 | DS ---
Physical Exam-HUMAN RESOURCES COMMUNICATIONS MANAGER Vital Signs: Vital Signs Temperature 98.3 F 02/11/19 21:50 Pulse Rate 86 02/11/19 21:50 Respiratory Rate 18 02/11/19 21:50 Blood Pressure 116/81 02/11/19 21:50 O2 Sat by Pulse Oximetry (%) 98 02/10/19 22:00 Constitutional: Yes: Well Nourished, No Distress, Calm Eyes: Yes: WNL, Conjunctiva Clear, EOM Intact HENT: Yes: WNL, Atraumatic, Normocephalic Neck: Yes: WNL, Supple, Trachea Midline Cardiovascular: Yes: WNL, Regular Rate and Rhythm Respiratory: Yes: WNL, Regular, CTA Bilaterally Gastrointestinal: Yes: WNL ...Rectal Exam: Yes: WNL Renal/: Yes: WNL ....Post : Yes: Uterus firm, Uterus non-tender, Slight lochia rubra Breast(s): Yes: WNL Musculoskeletal: Yes: WNL Extremities: Yes: WNL Edema: No Integumentary: Yes: WNL Neurological: Yes: WNL, Alert, Oriented ...Motor Strength: WNL Psychiatric: Yes: WNL, Alert, Oriented Labs: CBC, BMP 02/11/19 10:15 02/07/19 22:25 Delivery - Delivery Section: Primary, Low Flap Transverse Type of Anesthesia: Epidural, Spinal, General EBL (cc): 700 Delivery, Single - Stages of Labor Date 1st Stage Initiatied: 02/08/19 Time 1st Stage Initiated: 18:30 Date 2nd Stage Initiated: 02/08/19 Time 2nd Stage Initiated: 15:45 Date of Delivery: 02/08/19 Time of Delivery: 19:46 Time Placenta Delivered: 19:48 Placenta: Yes: Expressed - Condition of Infant Social Research Assistant/Helium Arc Welder Present: Yes Name: Elias Crane Gender: Female Weight: 7 lb 9 oz Position: Left, OT Total Hours ROM (Hrs/Mins): 11h 36m - 1 Minute Total Score: 6 5 Minutes Total Score: 8 - [place] Feeding Plan Initial Plan: Elected not to breastfeed exclusively throughout hospitalization Discharge Summary Reason For Visit: LABOR Current Active Problems Labor established (Acute) with 39 completed weeks gestation (Acute) Procedures: Principal: primary LST c/s Hospital Course: post op anemia Plan of Treatment: iron, vit, follow up in office 1 week Condition: Good - Instructions Diet, Activity, Other Instructions: if pain, heavy vginal bleeding, fever call md Referrals: Conrad Hahn MD [Staff Physician] - Disposition: HOME - Home Medications Comprehensive Discharge Medication List: Ambulatory Orders Ferrous Sulfate [Feosol] 325 mg PO DAILY 02/07/19 Vitamins (Sjr) - 1 tab PO DAILY 02/07/19 Ibuprofen [Motrin -] 600 mg PO QID #28 tablet 02/10/19
[2019-02-12] MEDS: PRENATAL VITAMINS W/ FOLIC ACID TABLET (FP) PO SCH (10:08)
[2019-02-12] MEDS: ENOXAPARIN NA (PORCINE) 40 MG/0.4 ML DISP.SYRIN SQ SCH (10:08)
[2019-02-12 13:14] VITALS: BP 126/83; PULSE 80; TEMP 98
--- NOTE | 2019-02-24 21:20 | OP ---
DATE OF OPERATION: 02/08/2019 PREOPERATIVE DIAGNOSIS: Intrauterine at estimated gestational age of 39 weeks. Arrest of descent (deep transverse arrest, high spinal anesthesia intraoperatively). POSTOPERATIVE DIAGNOSIS: Intrauterine at estimated gestational age of 39 weeks. Arrest of descent (deep transverse arrest, high spinal anesthesia intraoperatively). PROCEDURE: Primary low transverse section via Pfannenstiel skin incision. SURGEON: Conrad Hahn M.D. MARKING MACHINE TENDER: Radha Dixon M.D. ANESTHESIOLOGIST: Ed Quinn M.D. ANESTHESIA: Spinal. COMPLICATIONS: None. ESTIMATED BLOOD LOSS: 700 mL. INTRAVENOUS FLUIDS: 1200 mL. URINE OUTPUT: 350 mL of blood-tinged urine. PATHOLOGY: Placenta. FINDINGS: Live baby girl in vertex presentation, light meconium and amniotic fluids. Fetus is noted to be in deep transverse arrest. Normal uterus, fallopian tubes and ovaries. Baby's Apgars 6 and 8. A high spinal anesthesia was diagnosed early in the surgery, and it was converted to general. ANESTHESIA: General endotracheal anesthesia. PROCEDURE: The patient was met preoperatively. Risks, benefits, and alternatives of surgery were discussed in detail. All questions were answered. The patient was brought to the OR with the IV running. She was placed on the surgical table in a sitting position. The spinal anesthesia was achieved without difficulty. The patient was then placed on a surgical table in the supine position with leftward tilt. She was prepped and draped in the usual sterile fashion. A Lau catheter was left to drain to gravity. The urine was noted to be slightly blood tinged in the Lau bag. The patient was prepped and draped in the usual sterile fashion. A timeout procedure was conducted as per protocol. The surgeons then proceeded with the operation. Before the incision was made, a high spinal anesthesia was diagnosed, and the decision was to proceed with general anesthesia and endotracheal intubation. Once this was accomplished, a Pfannenstiel skin incision was made with the knife approximately 2 cm above the pubic symphysis. The incision was carried down to the level of fascia. The fascia was incised in the midline, and the incision was extended bilaterally using Larson scissors. The fascia was then dissected away from the rectus muscles superiorly and inferiorly using sharp dissection. The rectus muscles were in the midline bluntly. The peritoneum was identified and entered sharply. The peritoneal incision was then extended superiorly and inferiorly using Metzenbaum scissors. The bladder peritoneum was incised over the lower uterine segment. The bladder was dissected away from the rectus muscle using sharp dissection. The bladder was reflected downwards using a [place] retractor. The lower uterine segment was incised transversely using knife. The incision was extended bluntly in the cephalad and caudad direction. The baby was noted to be in a transverse deep arrest. The meconium was noted to be present in amniotic fluids. The baby was delivered without complications from vertex presentation. The baby's nose and mouth were suctioned upon delivery. The body and shoulders were delivered without complications. The umbilical cord was clamped and cut. The baby was handed to the awaiting mechanical piping designer. The placenta was then delivered manually and the uterus was cleared of all clots and debris using moist laparotomy laps. The uterus was then exteriorized, and the uterine incision was repaired using 0 Biosyn suture with a running, locking stitch. The uterine incision was then imbricated using a secondary layer of closure with a 0 Biosyn suture. Good hemostasis was noted. The uterus was noted to be well contracted. The uterus was then placed back into the abdominal cavity. The bladder peritoneum was reapproximated using severe 2-0 chromic stitches. The parietal peritoneum was then closed using a 2-0 Vicryl suture with a running stitch. The rectus muscles were approximated using several interrupted 2-0 chromic sutures. The fascia was closed with a 0 Vicryl suture with a running stitch. The subcutaneous tissues and [place] fascia were approximated using several interrupted 2-0 chromic sutures. The skin was closed with a 4-0 Vicryl suture using a subcutaneous stitch. Sponge, lap, and instrument counts were correct. Patient tolerated procedure well. Patient was transferred to recovery room in stable condition and awake. Amanda [id number]
== END 2019-02-12 12:50 | disposition home or self-care (01) | DRG 788 ==
LOC: JDEL 19:50 → JLDR 21:35 → J3W 02-08 22:31
PROVIDERS: ADMIT Obstetrics & Gynecology; ATTEND Obstetrics & Gynecology
PROC: 10D00Z1 Extraction of Products of Conception, Low, Open Approach (ICD-10-PCS; principal; 2019-02-08)
PROC: 30233N1 Transfusion of Nonautologous Red Blood Cells into Peripheral Vein, Percutaneous Approach (ICD-10-PCS; 2019-02-10)
DX: O62.0 Primary inadequate contractions (principal); O99.013 Anemia complicating pregnancy, third trimester; Z3A.39 39 weeks gestation of pregnancy; Z22.330 Carrier of Group B streptococcus; Z37.0 Single live birth
CPT/HCPCS: 36415; 36430; 36511; 36600; 80048; 82803; 85025; 85610; 85730; 86593; 86850; 86900; 86901; 86922; 87389; J0131; P9038; P9058

== ENCOUNTER 2019-02-14 16:46 | Emergency (ER) | payer OTHER ==
[2019-02-14 16:53] VITALS: BMI 29.1
--- NOTE | 2019-02-14 19:20 | PDOC ---
History of Present Illness - General Chief Complaint: Vaginal Bleeding Stated Complaint: VAGINAL BLOOD CLOTS/ DIZZINESS Time Seen by Provider: 02/14/19 17:15 History Source: Patient Exam Limitations: No Limitations - History of Present Illness Initial Comments: 02/14/19 19:07 Patient is a 23-year-old female G1, P1 status post on 02/08/2019 here with complaints of vaginal bleeding since . Patient states she has been bleeding 1 pad every 3 hours since . Today pasted what patient thought was a large clot, however from the picture was POC's). She has been having vagina itching and throbbing malodorous discharge. Also complains of mild dizziness and and headache 10/31. Past History - Past Medical History Allergies/Adverse Reactions: Allergies Allergy/AdvReac Type Severity Reaction Status Date / Time No Known Allergies Allergy Verified 02/14/19 16:53 Home Medications: Ambulatory Orders Ferrous Sulfate [Feosol] 325 mg PO DAILY 02/07/19 Vitamins (Sjr) - 1 tab PO DAILY 02/07/19 Ibuprofen [Motrin -] 600 mg PO QID #28 tablet 02/10/19 Miconazole Nitrate [Monistat 7] 44 gm VG DAILY 7 Days #1 pack 02/14/19 Anemia: No Asthma: No Cancer: No Cardiac Disorders: No CVA: No COPD: No Dementia: No Diabetes: No Dialysis: No GI Disorders: No Disorders: No HTN: No Hypercholesterolemia: No Kidney Stones: No Liver Disease: No Seizures: No Thyroid Disease: No - Surgical History Abdominal Surgery: No Appendectomy: No Cardiac Surgery: No Cholecystectomy: No Lung Surgery: No Neurologic Surgery: No - Immunization History Td Vaccination: Yes TDAP Vaccination: No Immunization Up to Date: Yes - Psycho Social/Smoking Cessation Hx Smoking Status: No Smoking History: Never smoked Have you smoked in the past 12 months: Yes Number of Cigarettes Smoked Daily: 0 Hx Alcohol Use: No Drug/Substance Use Hx: No Substance Use Type: None Hx Substance Use Treatment: No *Physical Exam - Vital Signs Last Vital Signs Temp Pulse Resp BP Pulse Ox 98.6 F 90 18 143/74 99 02/14/19 16:50 02/14/19 16:50 02/14/19 16:50 02/14/19 16:50 02/14/19 16:50 ED Treatment Course - LABORATORY CBC & Chemistry Diagram: 02/14/19 19:30 02/14/19 19:30 Medical Decision Making - Medical Decision Making 02/14/19 19:07 Patient is a 23-year-old female G1, P1 status post on 02/08/2019 here with complaints of vaginal bleeding since . Patient states she has been bleeding 1 pad every 3 hours since . Today pasted what patient thought was a large clot, however from the picture was POC's). She has been having vagina itching and throbbing malodorous discharge. Also complains of mild dizziness and and headache 10/31. Patient also states that she has history of anemia and was transfused 1 unit of blood during post . Patient has vaginal bleeding post will rule out retained POC's Case was discussed with Dr. Hahn recommends ultrasound and labs Will check H&H Labs reviewed noted to have an H&H of 01/20 which is at baseline 02/14/19 21:02 Patient Full Name: SELMA FORBES Patient Accession No: [id number] Patient : 1995 Reason for Exam: vaginal bleeding Referring Physician: Patient Name: LEIDY HAHN THIS IS A PRELIMINARY REPORT FROM [facility] DATE OF SERVICE: 2019-02-14 19:42:09 IMAGES: 27 EXAM: PELVIC / BLADDER US HISTORY: Vaginal bleeding. COMPARISON: None. Preliminary findings/impression: No evidence of pelvic abnormalities on this study. THIS DOCUMENT HAS BEEN ELECTRONICALLY SIGNED Jake Velasquez MD 02/14/2019 20:53 EST [facility]. Please call Imaging [facility] [phone] ([phone]) with questions. INTERPRETING RADIOLOGIST: Jake Velasquez MD Electronically Signed: Feb 14, 2019 08:54PM EST 02/14/19 21:02 I discussed the physical exam findings, ancillary test results and final diagnoses with the patient. I answered all of the patient's questions. The patient was satisfied with the care received and felt comfortable with the discharge plan and treatment plan. The Patient agrees to follow up with the primary care physician within 24-72 hours. Discharge - Discharge Information Problems reviewed: Yes Clinical Impression/Diagnosis: hemorrhage of vagina Condition: Stable Disposition: HOME - Additional Discharge Information Prescriptions: Miconazole Nitrate [Monistat 7] 44 gm VG DAILY 7 Days #1 pack - Follow up/Referral Referrals: Conrad Hahn MD [Staff Physician] - - Patient Discharge Instructions Patient Printed Discharge Instructions: DI for Hemorrhage Additional Instructions: Your Discharge Instructions: You must call primary care physician within 24 hours to arrange follow-up. Return to the Emergency Department with any new, persistent or worsening symptoms, for fever, chills, SOB, dizziness or any other concerning changes that may occur. Follow-up with Dr. Hahn in 24 hours for further management. - Post Discharge Activity
[2019-02-14 19:51] LABS: BASO % 1.3 % (0-2.0); EOS % 2.4 % (0-4.5); HEMATOCRIT 30.9 % (32.4-45.2); HEMOGLOBIN 10.2 GM/dL (10.7-15.3); LYMPH % 21.5 % (8-40); MCH 29.5 pg (25.7-33.7); MEAN CELL VOLUME 89.5 fl (80-96); MEAN PLT VOLUME 8.5 fl (7.5-11.1); MONO % 9.1 % (3.8-10.2); NEUT % 65.7 % (42.8-82.8); PLATELET COUNT 325 K/MM3 (134-434); RBC 3.46 M/mm3 (3.60-5.2); RDW 15.1 % (11.6-15.6); WHITE BLOOD COUNT 8.2 K/mm3 (4.0-10.0)
[2019-02-14 20:16] LABS: BLOOD UREA NITROGEN 12.4 mg/dL (7-18); CALCIUM 8.5 mg/dL (8.5-10.1); CREATININE 0.6 mg/dL (0.55-1.3); POTASSIUM 3.9 mmol/L (3.5-5.1)
[2019-02-14 20:37] VITALS: BP 114/78; PULSE 82; TEMP 98.2
== END 2019-02-14 21:43 | disposition home or self-care (01) ==
LOC: JER 16:46
DX: O90.89 Other complications of the puerperium, not elsewhere classified (principal); O72.2 Delayed and secondary postpartum hemorrhage
CPT/HCPCS: 36415; 76856-TC; 80048; 85025; 86850; 86900; 86901; 99283-25

== ENCOUNTER 2023-07-09 15:27 | Emergency (ER) | payer SELFPAY ==
[2023-07-09 15:38] VITALS: BP 131/93; PULSE 98; RESP 18; TEMP 99.1; BMI 22.4
[2023-07-09] MEDS: ACETAMINOPHEN 500 MG TABLET (FP) PO ONE (16:21)
[2023-07-09] MEDS ORDERED: ACETAMINOPHEN 500 MG TABLET (FP) ONE (16:22)
== END 2023-07-09 16:27 | disposition home or self-care (01) ==
LOC: JERFT 15:27
DX: M79.10 Myalgia, unspecified site (principal); R68.83 Chills (without fever); R09.81 Nasal congestion; R53.81 Other malaise; J02.9 Acute pharyngitis, unspecified; R63.0 Anorexia; Z20.822 Contact with and (suspected) exposure to COVID-19
CPT/HCPCS: 0241U-QW; 99283-25